=== PATIENT | female | born 1960 | race African-American/Black ===

== ENCOUNTER 2016-09-11 23:56 | Emergency (ER) ==
[2016-09-12 00:45] LABS: URINE CULTURE NEEDED? NO; URINE MICRO REVIEW NEEDED? NO; URINE SOURCE CLEAN CATCH
[2016-09-12 00:49] LABS: BILIRUBIN URINE NEGATIVE (NEGATIVE); BLOOD URINE NEGATIVE (NEGATIVE); COLOR STRAW; GLUCOSE URINE NEGATIVE (NEGATIVE); LEUKOCYTES URINE NEGATIVE (NEGATIVE); NITRITE URINE NEGATIVE (NEGATIVE); PH URINE 6.5; PROTEIN URINE NEGATIVE (NEGATIVE); SP GRAVITY URINE 1.003; TURBIDITY URINE CLEAR (CLEAR); UR EPITHELIAL CELLS <10 /HPF (<10); URINE BACTERIA NEGATIVE /HPF; URINE RBC <10 /HPF (<10); URINE WBC <10 /HPF (<10); UROBILINOGEN URINE NORMAL (NORMAL)
[2016-09-12 01:09] LABS: MANUAL DIFF NEEDED? NO
[2016-09-12 01:15] LABS: BASO% 0.4 % (0.0-0.8); EOS# 0.38 X1000 (0.0-0.7); HEMATOCRIT 37.3 % (37.0-47.0); HEMOGLOBIN 11.8 g/dL (12.0-16.0); IMM GRAN# 0.05 X1000 (0.0-0.04); IMM GRAN% 0.4 % (0.0-0.5); LYMPH% 39.9 % (20.5-51.1); MCH 23.9 PG (27-31); MCHC 31.6 g/dL (33-37); MCV 75.7 FL (81-99); MONO% 4.8 % (1.7-9.3); MPV 9.7 FL (7.4-10.4); NEUT% 51.5 % (42.2-75.2); PLT 423 X1000 (130-400); RBC 4.93 XMIL (4.2-5.4)
[2016-09-12 01:28] LABS: INR 1.03; PROTIME 10.9 Seconds (9.2-11.7); PTT 25.3 Seconds (22.0-36.0)
[2016-09-12 01:40] LABS: ALBUMIN 3.5 g/dL (3.5-5.0); TOTAL BILIRUBIN 0.17 mg/dL (0.20-1.00); TOTAL PROTEIN 7.4 g/dL (6.3-8.3)
[2016-09-12 01:52] LABS: CALCIUM 8.5 mg/dL (8.8-10.2); MAGNESIUM 2.1 mg/dL (1.5-2.7)
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
[2016-09-12] MEDS ORDERED: NORCO-7.5 PO ONE (02:06)
[2016-09-12] MEDS ORDERED: DUONEB (A & A) INH ONE (02:06)
[2016-09-12 02:39] VITALS: BP 140/85
--- NOTE | 2016-09-12 05:50 | EKG Report ---
Test Performed on : 09/12/2016 00:02:19 AM Test Reason : CHEST PAIN X3 DAYS Blood Pressure : / mmHG Vent. Rate : 079 BPM Atrial Rate : 079 BPM P-R Int : 158 ms QRS Dur : 064 ms QT Int : 374 ms P-R-T Axes : 051 026 018 degrees QTc Int : 428 ms Normal sinus rhythm. Possible Left atrial enlargement Borderline ECG When compared with ECG of 28-AUG-2016 11:48, No significant change was found Unconfirmed Result
--- NOTE | 2016-09-12 08:54 | Diag Imaging Result Document ---
PROCEDURE NAME: CHEST-2 VIEWS - 09/12/2016 PA AND LATERAL RADIOGRAPHS OF THE CHEST: COMPARISON: 08/28/2016. FINDINGS: Interstitial thickening on the left is stable suggesting fibrosis. No new consolidations are identified. Cardiac silhouette and central vasculature are unremarkable. IMPRESSION: Stable fibrotic changes on the left. No definite acute pathology.
== END 2016-09-12 02:38 | disposition home or self-care (01) ==
LOC: ED 23:56
DX: J41.0 Simple chronic bronchitis (principal); R05 Cough; R07.9 Chest pain, unspecified; R10.31 Right lower quadrant pain; R10.11 Right upper quadrant pain; M79.601 Pain in right arm; R10.811 Right upper quadrant abdominal tenderness; I10 Essential (primary) hypertension; K21.9 Gastro-esophageal reflux disease without esophagitis; G89.29 Other chronic pain; E11.9 Type 2 diabetes mellitus without complications; I69.354 Hemiplegia and hemiparesis following cerebral infarction affecting left non-dominant side; F41.9 Anxiety disorder, unspecified; F17.210 Nicotine dependence, cigarettes, uncomplicated; Z79.899 Other long term (current) drug therapy; Z83.3 Family history of diabetes mellitus; Z82.49 Family history of ischemic heart disease and other diseases of the circulatory system; Z82.3 Family history of stroke; Z71.6 Tobacco abuse counseling
CPT/HCPCS: 36415; 71020; 80053; 81001; 82550; 83735; 83880; 84484; 85025; 85379; 85610; 85730; 93005; 99284

== ENCOUNTER 2016-11-19 20:40 | Emergency (ER) ==
[2016-11-19 20:47] VITALS: BP 133/102
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
[2016-11-19] MEDS ORDERED: G.I. COCKTAIL PO ONE (21:29)
[2016-11-19] MEDS ORDERED: BENTYL PO ONE (22:08)
--- NOTE | 2016-11-20 06:30 | Diag Imaging Result Document ---
PROCEDURE NAME: FLAT/UPRIGHT ABD/1 VIEW CHEST - 11/19/2016 FLAT AND UPRIGHT, THREE VIEWS: FINDINGS: The lungs are well expanded. The heart is not enlarged. Mild increased interstitial markings appear to be fibrosis. No free air beneath the diaphragm. Bowel loops are not dilated. There is stool in the proximal colon but no significant stool in the mid and distal colon. No organomegaly. No abnormal abdominal calcifications. IMPRESSION No acute abnormality. [facility]
== END 2016-11-19 22:20 | disposition home or self-care (01) ==
LOC: P.ED 20:40
DX: K59.00 Constipation, unspecified (principal); R10.11 Right upper quadrant pain; R10.13 Epigastric pain; R10.811 Right upper quadrant abdominal tenderness; I10 Essential (primary) hypertension; J45.909 Unspecified asthma, uncomplicated; K21.9 Gastro-esophageal reflux disease without esophagitis; G89.29 Other chronic pain; E11.9 Type 2 diabetes mellitus without complications; I69.354 Hemiplegia and hemiparesis following cerebral infarction affecting left non-dominant side; F41.9 Anxiety disorder, unspecified; F17.210 Nicotine dependence, cigarettes, uncomplicated; Z79.899 Other long term (current) drug therapy; Z71.6 Tobacco abuse counseling; Z83.3 Family history of diabetes mellitus; Z82.49 Family history of ischemic heart disease and other diseases of the circulatory system; Z82.3 Family history of stroke
CPT/HCPCS: 74022

== ENCOUNTER 2016-11-20 17:53 | Emergency (ER) ==
[2016-11-20 19:07] LABS: MANUAL DIFF NEEDED? NO
[2016-11-20 19:12] LABS: BASO% 0.3 % (0.0-0.8); EOS# 0.26 X1000 (0.0-0.7); EOS% 2.4 % (0.0-10.0); HEMATOCRIT 44.6 % (37.0-47.0); HEMOGLOBIN 14.1 g/dL (12.0-16.0); IMM GRAN# 0.03 X1000 (0.0-0.04); IMM GRAN% 0.3 % (0.0-0.5); LYMPH# 4.31 X1000 (1.2-3.4); LYMPH% 39.7 % (20.5-51.1); MCH 24.4 PG (27-31); MCHC 31.6 g/dL (33-37); MCV 77.3 FL (81-99); MONO# 0.52 X1000 (0.11-0.59); MONO% 4.8 % (1.7-9.3); MPV 10.4 FL (7.4-10.4); NEUT% 52.5 % (42.2-75.2); PLT 337 X1000 (130-400); RBC 5.77 XMIL (4.2-5.4)
[2016-11-20 19:29] LABS: ALBUMIN 4.1 g/dL (3.5-5.0); CALCIUM 9.2 mg/dL (8.8-10.2); TOTAL BILIRUBIN 0.15 mg/dL (0.20-1.00); TOTAL PROTEIN 8.3 g/dL (6.3-8.3)
[2016-11-20 20:01] LABS: URINE CULTURE NEEDED? NO; URINE MICRO REVIEW NEEDED? NO; URINE SOURCE CLEAN CATCH
[2016-11-20 20:04] LABS: BILIRUBIN URINE NEGATIVE (NEGATIVE); BLOOD URINE NEGATIVE (NEGATIVE); COLOR YELLOW; GLUCOSE URINE NEGATIVE (NEGATIVE); LEUKOCYTES URINE NEGATIVE (NEGATIVE); NITRITE URINE NEGATIVE (NEGATIVE); PROTEIN URINE TRACE mg/dL (NEGATIVE); TURBIDITY URINE CLEAR (CLEAR); UROBILINOGEN URINE NORMAL (NORMAL)
[2016-11-20 20:05] LABS: UR EPITHELIAL CELLS <10 /HPF (<10); URINE BACTERIA 1+ /HPF; URINE RBC <10 /HPF (<10); URINE WBC <10 /HPF (<10)
[2016-11-20] MEDS ORDERED: NS 1,000 ML IV ONE (20:16)
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
[2016-11-20] MEDS ORDERED: DILAUDID IV ONE (20:21)
[2016-11-20] MEDS ORDERED: PHENERGAN IV ONE (20:21)
[2016-11-20] MEDS ORDERED: SODIUM CHLORIDE 0.9% INJ ONE ×2 (20:21→20:23)
[2016-11-20] MEDS ORDERED: PROTONIX IV ONE (20:23)
[2016-11-20] MEDS ORDERED: DECADRON IV ONE (22:53)
--- NOTE | 2016-11-20 23:06 | Diag Imaging Result Document ---
PROCEDURE NAME: CT ABD/PELVIS W/ IV CONT ONLY - 11/20/2016 CT ABDOMEN AND PELVIS WITH INTRAVENOUS CONTRAST. DOSE REDUCTION PROTOCOL. COMPARISON: 04/04/2016. FINDINGS: There is fatty infiltration of the liver. Normal spleen. The gallbladder is contracted. No inflammation about the pancreas. No pancreatic mass or pseudocyst. No pancreatic calcifications. Normal adrenal glands. Normal enhancement of the kidneys. No hydronephrosis. No aortic aneurysm. Mild atherosclerosis. No bowel obstruction. Normal appendix. No abscess. There is a fat-filled anterior abdominal wall hernia just above the umbilicus on the right. No bowel loop within this. The uterus has been removed. The urinary bladder is minimally distended. No free air. IMPRESSION: 1. No CT evidence of pancreatitis. 2. Fatty infiltration of the liver. 3. Anterior abdominal wall hernia containing fat. 4. Hysterectomy. A preliminary report was given at 9:56 p.m..
[2016-11-20 23:27] VITALS: BP 154/83
== END 2016-11-20 23:26 | disposition home or self-care (01) ==
LOC: ED 17:53
DX: R10.11 Right upper quadrant pain (principal); R11.2 Nausea with vomiting, unspecified; K76.0 Fatty (change of) liver, not elsewhere classified; K46.9 Unspecified abdominal hernia without obstruction or gangrene; R10.811 Right upper quadrant abdominal tenderness; I10 Essential (primary) hypertension; J45.909 Unspecified asthma, uncomplicated; K21.9 Gastro-esophageal reflux disease without esophagitis; G89.29 Other chronic pain; E11.9 Type 2 diabetes mellitus without complications; F41.9 Anxiety disorder, unspecified; Z79.899 Other long term (current) drug therapy; Z86.73 Personal history of transient ischemic attack (TIA), and cerebral infarction without residual deficits; Z83.3 Family history of diabetes mellitus; Z82.49 Family history of ischemic heart disease and other diseases of the circulatory system; Z82.3 Family history of stroke
CPT/HCPCS: 74177; 80053; 81001; 82150; 83690; 85025; C9113; J1100; J1170; J2550; J7030; Q9967; S0164

== ENCOUNTER 2016-11-26 05:22 | Emergency (ER) ==
[2016-11-26 05:26] VITALS: BP 163/104
[2016-11-26] MEDS ORDERED: G.I. COCKTAIL PO ONE (05:34)
[2016-11-26] MEDS ORDERED: TORADOL IM ONE (05:34)
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
== END 2016-11-26 06:21 | disposition home or self-care (01) ==
LOC: EDBD → ED 05:22
DX: K82.9 Disease of gallbladder, unspecified (principal); R10.13 Epigastric pain; R10.819 Abdominal tenderness, unspecified site; I10 Essential (primary) hypertension; J45.909 Unspecified asthma, uncomplicated; K21.9 Gastro-esophageal reflux disease without esophagitis; G89.29 Other chronic pain; E11.9 Type 2 diabetes mellitus without complications; I69.354 Hemiplegia and hemiparesis following cerebral infarction affecting left non-dominant side; F41.9 Anxiety disorder, unspecified; Z79.899 Other long term (current) drug therapy; Z83.3 Family history of diabetes mellitus; Z82.49 Family history of ischemic heart disease and other diseases of the circulatory system; Z82.3 Family history of stroke
CPT/HCPCS: J1885

== ENCOUNTER 2017-05-24 12:54 | Inpatient (IN) ==
[2017-05-24 13:40] LABS: MANUAL DIFF NEEDED? NO
[2017-05-24 13:46] LABS: BASO% 0.7 % (0.0-0.8); EOS# 0.27 X1000 (0.0-0.7); EOS% 3.1 % (0.0-10.0); HEMATOCRIT 47.3 % (37.0-47.0); LYMPH# 3.99 X1000 (1.2-3.4); LYMPH% 45.1 % (20.5-51.1); MCH 24.8 PG (27-31); MCHC 31.7 g/dL (33-37); MCV 78.2 FL (81-99); MONO# 0.49 X1000 (0.11-0.59); MONO% 5.5 % (1.7-9.3); MPV 9.6 FL (7.4-10.4); NEUT% 45.6 % (42.2-75.2); PLT 434 X1000 (130-400); RBC 6.05 XMIL (4.2-5.4)
[2017-05-24] MEDS ORDERED: DILAUDID IV ONE (16:26)
[2017-05-24] MEDS ORDERED: REGLAN IV ONE (16:26)
[2017-05-24] MEDS ORDERED: NS 1,000 ML IV ONE (16:27)
[2017-05-24] MEDS ORDERED: PROTONIX IV ONE (16:39)
[2017-05-24] MEDS ORDERED: G.I. COCKTAIL PO ONE (16:39)
[2017-05-24 17:09] LABS: ALBUMIN 4.5 g/dL (3.5-5.0); CALCIUM 9.9 mg/dL (8.8-10.2); TOTAL BILIRUBIN 0.16 mg/dL (0.20-1.00); TOTAL PROTEIN 9.2 g/dL (6.3-8.3)
[2017-05-24] MEDS ORDERED: DILAUDID ONE (17:27)
[2017-05-24 18:03] LABS: INR 1.03; PROTIME 10.8 Seconds (9.2-11.7); PTT 25.9 Seconds (22.0-36.0)
[2017-05-24] MEDS ORDERED: SODIUM CHLORIDE 0.9% INJ ONE (20:28)
[2017-05-24] MEDS ORDERED: PHENERGAN IV ONE (20:28)
[2017-05-24] MEDS ORDERED: DEMEROL IV ONE (20:28)
[2017-05-24] MEDS ORDERED: NS 500 ML IV ONE (20:30)
[2017-05-24 22:44] LABS: URINE MICRO REVIEW NEEDED? NO; URINE SOURCE CLEAN CATCH
[2017-05-24 22:47] LABS: BILIRUBIN URINE NEGATIVE (NEGATIVE); BLOOD URINE NEGATIVE (NEGATIVE); COLOR YELLOW; GLUCOSE URINE NEGATIVE (NEGATIVE); LEUKOCYTES URINE TRACE (NEGATIVE); NITRITE URINE NEGATIVE (NEGATIVE); PROTEIN URINE NEGATIVE (NEGATIVE); SP GRAVITY URINE 1.015; TURBIDITY URINE CLEAR (CLEAR); UROBILINOGEN URINE NORMAL (NORMAL)
[2017-05-24 22:48] LABS: UR EPITHELIAL CELLS <10 /HPF (<10); URINE BACTERIA NEGATIVE /HPF; URINE CULTURE NEEDED? YES; URINE RBC <10 /HPF (<10); URINE WBC <10 /HPF (<10)
[2017-05-24] MEDS ORDERED: DULCOLAX PR ONE (23:24)
[2017-05-24] MEDS ORDERED: NS 1,000 ML IV SCH (23:24)
[2017-05-24] MEDS ORDERED: ZOFRAN IV PRN (23:24)
[2017-05-24] MEDS ORDERED: DULCOLAX PR PRN (23:24)
[2017-05-25 00:03] LABS: HEMOGLOBIN A1C 6.2 % (4.8-6.0)
[2017-05-25] MEDS: XANAX PO SCH ×3 (00:08→20:21)
[2017-05-25] MEDS: REGLAN IV SCH ×4 (00:08→18:14)
[2017-05-25] MEDS: CARAFATE LIQUID PO SCH ×4 (00:08→18:14)
[2017-05-25] MEDS ORDERED: MORPHINE IV ONE (00:12)
[2017-05-25] MEDS: LOVENOX SUBQ SCH (06:09)
[2017-05-25 06:38] LABS: MANUAL DIFF NEEDED? NO
[2017-05-25 06:51] LABS: BASO% 0.3 % (0.0-0.8); EOS% 2.7 % (0.0-10.0); HEMATOCRIT 39.4 % (37.0-47.0); HEMOGLOBIN 12.4 g/dL (12.0-16.0); LYMPH# 3.94 X1000 (1.2-3.4); LYMPH% 52.5 % (20.5-51.1); MCH 25.1 PG (27-31); MCHC 31.5 g/dL (33-37); MCV 79.6 FL (81-99); MONO# 0.54 X1000 (0.11-0.59); MONO% 7.2 % (1.7-9.3); MPV 10.1 FL (7.4-10.4); NEUT% 37.3 % (42.2-75.2); PLT 376 X1000 (130-400); RBC 4.95 XMIL (4.2-5.4)
[2017-05-25 07:15] LABS: CALCIUM 8.8 mg/dL (8.8-10.2)
[2017-05-25] MEDS ORDERED: TORADOL IV PRN (09:35)
[2017-05-25] MEDS: COLACE PO SCH (10:21)
[2017-05-25] MEDS: MIRALAX PO SCH (10:22)
[2017-05-25] MEDS: CATAPRES PO SCH (10:22)
[2017-05-25] MEDS: PROTONIX IV SCH (10:22)
[2017-05-25] MEDS: SODIUM CHLORIDE 0.9% INJ SCH (10:22)
[2017-05-25] MEDS: NUBAIN IV PRN ×3 (11:49→23:32)
[2017-05-25] MEDS: TYLENOL PO PRN ×2 (13:11→20:21)
[2017-05-25] MEDS: NS 1,000 ML IV SCH (18:14)
[2017-05-25] MEDS: ATIVAN IV PRN (20:21)
[2017-05-26] MEDS: NS 1,000 ML IV SCH ×2 (00:54→18:00)
[2017-05-26] MEDS: CARAFATE LIQUID PO SCH ×4 (00:54→18:00)
[2017-05-26] MEDS: REGLAN IV SCH ×4 (00:55→18:00)
[2017-05-26] MEDS: ATIVAN IV PRN ×4 (03:00→22:04)
[2017-05-26] MEDS: NUBAIN IV PRN ×2 (05:07→11:25)
[2017-05-26] MEDS: LOVENOX SUBQ SCH (05:08)
[2017-05-26 06:34] LABS: MANUAL DIFF NEEDED? NO
[2017-05-26 06:58] LABS: BASO% 0.4 % (0.0-0.8); EOS# 0.43 X1000 (0.0-0.7); EOS% 4.8 % (0.0-10.0); HEMATOCRIT 39.9 % (37.0-47.0); HEMOGLOBIN 12.3 g/dL (12.0-16.0); IMM GRAN# 0.02 X1000 (0.0-0.04); IMM GRAN% 0.2 % (0.0-0.5); LYMPH% 57.1 % (20.5-51.1); MCH 24.7 PG (27-31); MCHC 30.8 g/dL (33-37); MCV 80.1 FL (81-99); MONO# 0.55 X1000 (0.11-0.59); MONO% 6.2 % (1.7-9.3); MPV 10.3 FL (7.4-10.4); NEUT% 31.3 % (42.2-75.2); PLT 394 X1000 (130-400); RBC 4.98 XMIL (4.2-5.4)
[2017-05-26 07:07] LABS: CALCIUM 8.9 mg/dL (8.8-10.2); POTASSIUM 4.5 mmol/L (3.5-5.1)
[2017-05-26] MEDS ORDERED: MIRALAX PO SCH (09:00)
[2017-05-26] MEDS: COLACE PO SCH (09:16)
[2017-05-26] MEDS: CATAPRES PO SCH (09:16)
[2017-05-26] MEDS: SODIUM CHLORIDE 0.9% INJ SCH (09:17)
[2017-05-26] MEDS: XANAX PO SCH ×2 (09:17→22:03)
[2017-05-26] MEDS: PROTONIX IV SCH (09:17)
[2017-05-26] MEDS: MIRALAX PO SCH (09:18)
[2017-05-26] MEDS ORDERED: HALDOL IV PRN (11:30)
[2017-05-26] MEDS: DEMEROL IV PRN ×3 (12:04→23:36)
[2017-05-27] MEDS: CARAFATE LIQUID PO SCH ×2 (00:23→05:07)
[2017-05-27] MEDS: REGLAN IV SCH ×2 (02:16→06:18)
[2017-05-27] MEDS: ATIVAN IV PRN (04:11)
[2017-05-27] MEDS: DEMEROL IV PRN (05:04)
[2017-05-27] MEDS: NS 1,000 ML IV SCH (05:04)
[2017-05-27] MEDS: LOVENOX SUBQ SCH (06:18)
[2017-05-27 07:30] VITALS: BP 181/98
[2017-05-27] MEDS: XANAX PO SCH (09:40)
[2017-05-27] MEDS: CATAPRES PO SCH (09:40)
[2017-05-27] MEDS: COLACE PO SCH (09:40)
[2017-05-27] MEDS: MIRALAX PO SCH (09:40)
[2017-05-27] MEDS: PROTONIX IV SCH (09:40)
== END 2017-05-27 10:14 | disposition home or self-care (01) ==
LOC: SUPCPDRO → ED 12:54 → 4N 23:10 → SUATTDRO 23:10
PROVIDERS: ADMIT Internal Medicine; ATTEND Internal Medicine

== ENCOUNTER 2019-04-03 12:52 | Inpatient (IN) ==
[2019-04-03] MEDS ORDERED: ZOFRAN IV ONE (13:57)
[2019-04-03] MEDS ORDERED: MORPHINE IV ONE ×2 (13:57→16:30)
[2019-04-03 14:22] LABS: BASO# 0.02 X1000 (0.0-0.2); BASO% 0.2 % (0.0-0.8); EOS# 0.03 X1000 (0.0-0.7); EOS% 0.3 % (0.0-10.0); HEMATOCRIT 44.2 % (37.0-47.0); HEMOGLOBIN 14.1 g/dL (12.0-16.0); IMM GRAN# 0.03 X1000 (0.0-0.04); IMM GRAN% 0.3 % (0.0-0.5); LYMPH# 2.05 X1000 (1.2-3.4); LYMPH% 21.7 % (20.5-51.1); MCH 24.3 PG (27-31); MCHC 31.9 g/dL (33-37); MCV 76.1 FL (81-99); MONO# 0.56 X1000 (0.11-0.59); MONO% 5.9 % (1.7-9.3); MPV 11.1 FL (7.4-10.4); NEUT# 6.75 X1000 (1.4-6.5); NEUT% 71.6 % (42.2-75.2); PLT 299 X1000 (130-400); RBC 5.81 XMIL (4.2-5.4); RDW 17.3 % (11.5-14.5); WBC 9.44 X1000 (4.8-10.8)
--- NOTE | 2019-04-03 14:22 | EKG Report ---
Test Performed on : 04/03/2019 12:58:12 PM Test Reason : CP Blood Pressure : / mmHG Vent. Rate : 100 BPM Atrial Rate : 100 BPM P-R Int : 140 ms QRS Dur : 060 ms QT Int : 344 ms P-R-T Axes : 056 038 059 degrees QTc Int : 443 ms Normal sinus rhythm. Biatrial enlargement Abnormal ECG When compared with ECG of 18-OCT-2018 09:43, No significant change was found Unconfirmed Result
[2019-04-03 14:37] LABS: ALB/GLOB RATIO 0.9; ALBUMIN 4.1 g/dL (3.5-5.0); CALCIUM 9.7 mg/dL (8.8-10.2); CREATININE 2.5 mg/dL (0.5-0.9); POTASSIUM 3.8 mmol/L (3.5-5.1); TOTAL BILIRUBIN 0.3 mg/dL (0.20-1.00); TOTAL PROTEIN 8.6 g/dL (6.3-8.3)
--- NOTE | 2019-04-03 14:51 | Diag Imaging Result Doc PS360 ---
EXAM: US GB < RUQ (LIMITED) 04/03/2019 HISTORY: ruq pain TECHNIQUE: Right upper quadrant ultrasound COMMENT: The pancreatic head appears to be within normal limits the rest is obscured. The liver is not well demonstrated but there are no definite abnormalities. There is no evidence of biliary dilatation the common bile duct measuring less than 4 mm. There is antegrade flow in the portal vein. The gallbladder is clear and nontender. The right kidney is without evidence of hydronephrosis or mass. The visualized portions of the aorta and inferior vena cava are within normal limits. IMPRESSION: No evidence of acute disease. Electronically signed by Roosevelt Dee 04/03/2019 2:48 PM
[2019-04-03 15:09] LABS: URINE SOURCE CLEAN CATCH
[2019-04-03 15:13] LABS: BILIRUBIN URINE NEGATIVE (NEGATIVE); BLOOD URINE TRACE (NEGATIVE); COLOR YELLOW; GLUCOSE URINE NEGATIVE (NEGATIVE); KETONE URINE TRACE mg/dL (NEGATIVE); LEUKOCYTES URINE NEGATIVE (NEGATIVE); NITRITE URINE NEGATIVE (NEGATIVE); PH URINE 5.5; PROTEIN URINE 100 mg/dL (NEGATIVE); SP GRAVITY URINE 1.026; TURBIDITY URINE HAZY (CLEAR); UROBILINOGEN URINE 2 mg/dL (NORMAL)
[2019-04-03 15:15] LABS: UR EPITHELIAL CELLS >10 /HPF (<10); URINE BACTERIA 2+ /HPF; URINE WBC 20-40 /HPF (<10)
[2019-04-03] MEDS ORDERED: NS 1,000 ML IV ONE ×2 (15:17→21:33)
--- NOTE | 2019-04-03 16:19 | Diag Imaging Result Doc PS360 ---
EXAM: CT ABD/PELVIS W/ORAL CONT ONLY 04/03/2019 HISTORY: ruq pain/tender TECHNIQUE: This exam was performed using automated exposure control, adjustment of mA or kV according to patient size, and/or use of iterative reconstruction technique. COMMENT: There are fibrotic opacities in the right middle lobe and lingula. There are emphysematous changes in both lower lobes. These findings were also present on 03/27/2018. There are granulomata in the spleen. The gallbladder is clear. There are a few scattered hepatic granulomata. There is fatty change near the falciform ligament groove. There is some dilatation of the renal pelvis and calyces on the right. This was not the case at the time the previous study. There is no evidence of nephrolithiasis. There is no evidence of ureterolithiasis and the urinary bladder is unremarkable. The appendix is normal in appearance. There is a small ventral hernia containing fat to the right of the umbilicus. There is no evidence of bowel obstruction. Pelvis: There has been hysterectomy. No free fluid is present. There are degenerative changes in the sacroiliac joints. There is no evidence of acute bony abnormality. IMPRESSION: Dilatation of the right renal collecting system of uncertain etiology. Otherwise, no evidence of acute disease. Electronically signed by Roosevelt Dee 04/03/2019 4:17 PM
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
[2019-04-03] MEDS ORDERED: DILAUDID IV ONE (17:33)
[2019-04-03] MEDS ORDERED: DILAUDID IV PRN (18:44)
--- NOTE | 2019-04-03 21:10 | HISTORY AND PHYSICAL ---
CHIEF COMPLAINT: Nausea, vomiting, chest pain and abdominal pain for 4 days. HISTORY OF PRESENT ILLNESS: The patient says she started throwing up and having substernal chest pain that radiated down her left arm and caused her to have diaphoresis and shortness of breath. Her chest pain was dull and substernal and a little bit to the right side of the sternum, but she had pain down her left arm. She initially told the emergency room doctor that she had more right upper quadrant pain that will radiated to the epigastrium, but this is a little unusual that she has shortness of breath with this as well. She says however though she does have shortness of breath at other times as well. PAST MEDICAL HISTORY: She states that she has had some hypertension and some diabetes, but she does not take any medicine for the diabetes. She has a history of peripheral neuropathy. She does have some low back pain at times. SOCIAL HISTORY: She soes not alcohol or tobacco. She placido have a history of chronic obstructive pulmonary disease and GERD. It should be noted the patient has been a tobacco user in the past, and has a history of COPD, history of peptic ulcer disease, history of gastroparesis. She has not had a history of vascular disease. The last hemoglobin A1c that we have on her was on 05/24/2017, it was 6.2%. Her creatinine was elevated at 2.5 at that time. Creatinine is 2.5 here as well. She has no children, REVIEW OF SYSTEMS: Neurological: Says she has a headache almost every day, this certainly sounds like tension headaches from her description. Pulmonary: Says she has a cough a good bit of the time, but does have a history of COPD. Cardiovascular: Please see present illness. Has had some chest pain, it is unclear whether this is GI or cardiac, but we will rule out cardiac. Gastrointestinal: Has had nausea and vomiting several times over the last several days. Blood sugar was 146. Denies any diarrhea, constipation, melena, hematochezia, hematemesis. Endocrine: Does have diabetes controlled with diet. Genitourinary: Denies any symptoms with urinary tract despite findings on studies. Psychiatric: Has had anxiety and depression in the past. Please see medication list. PHYSICAL EXAMINATION: VITAL SIGNS: Show a blood pressure of 175/104, oxygen saturation is 96%, pulse 90, temperature 97.6 degrees Fahrenheit. HEENT: She is normocephalic. EOMS intact. PERRLA. Throat clear. LUNGS: Clear to auscultation and percussion without rhonchi, rales or wheezes. HEART: Regular rate and rhythm without murmurs, gallops or friction rubs. ABDOMEN: Soft. She has a little right upper quadrant tenderness. She has what appears to be an abdominal hernia and then seen on her CT scan as well. EKG shows normal sinus rhythm with biatrial enlargement. Otherwise normal. Rate of 100 beats per minute. PELVIC/RECTAL: Examinations deferred. NEUROLOGICAL: Cranial nerves II-XII intact grossly. Sensory and motor intact. Reflexes 1+ all. She does have decreased sensation especially on the bottom of her right foot with monofilament testing. LABORATORY: Shows a white count down to 9440, hemoglobin 14.1, creatinine 2.5, which shows her chronic kidney disease. Blood sugar was 146. We will get a hemoglobin A1c. Serum lipase was just slightly up 77, one liver enzyme was slightly up at 38. Urinalysis showed 20 to 40 WBCs and 10 to 20 RBCs. Ultrasound of her abdomen was essentially normal. CT scan of her collecting system shows some fibrotic opacities in the right middle lobe like that she has had before consistent with emphysema. She had fatty change to the liver. There is some dilatation of the renal pelvis and calices on the right, but no signs of stone. There is no evidence of ureterolithiasis and the bladder was unremarkable. Whether she has had a stone in the past it is unclear. She has never known about having it. She is not having symptoms of a urinary tract infection, though she does have pyuria and hematuria. ASSESSMENT: 1. Nausea and vomiting with chest pain. Plan to rule out myocardial infarction then if that is negative to do gastroenterology workup. 2. Urinary tract infection. 3. Dilated right collecting system up in the kidney. 4. Anxiety. 5. Chronic kidney disease. 6. History of diet controlled diabetes. 7. Hypertension. PLAN: We will treat nausea. We will get Cardiology to see her, if this looks more GI weill get astroenterology to see her as well. Control her pain and control her nausea. Rule out NV. Dictated by Ten Boyd Jr, MD for PPedro Luis Pitts MD cc: MD Vinay Peralta Jr, MD
[2019-04-03] MEDS ORDERED: TYLENOL PO PRN (21:33)
[2019-04-03] MEDS ORDERED: DILAUDID IM PRN (21:33)
[2019-04-03 22:40] LABS: UR AMPHETAMINES QUAL NONE DETECTED (NONE DETECT); UR BARBITUATES QUAL NONE DETECTED (NONE DETECT); UR BENZODIAZEPIN QUAL NONE DETECTED (NONE DETECT); UR CANNABINOIDS QUAL NONE DETECTED (NONE DETECT); UR COCAINE QUAL NONE DETECTED (NONE DETECT); UR METHADONE QUAL NONE DETECTED (NONE DETECT); UR OPIATES QUAL PRESUMPTIVE POSITIVE (NONE DETECT); UR OXYCODONE QUAL NONE DETECTED (NONE DETECT); UR PCP QUAL NONE DETECTED (NONE DETECT)
[2019-04-03] MEDS: NITROGLYCERIN TOP SCH (23:05)
[2019-04-04 00:16] LABS: CK INDEX 1.7 (0.0-2.5); CK-MB 3.19 ng/mL (0.0-5.0)
[2019-04-04] MEDS: DILAUDID IV PRN ×7 (00:58→23:23)
[2019-04-04] MEDS: ZOFRAN IV PRN ×5 (02:23→21:38)
[2019-04-04] MEDS: NITROGLYCERIN TOP SCH ×4 (04:05→21:38)
[2019-04-04 05:35] LABS: BASO# 0.04 X1000 (0.0-0.2); BASO% 0.5 % (0.0-0.8); EOS# 0.18 X1000 (0.0-0.7); EOS% 2.2 % (0.0-10.0); HEMATOCRIT 38.2 % (37.0-47.0); HEMOGLOBIN 12.4 g/dL (12.0-16.0); LYMPH# 3.59 X1000 (1.2-3.4); LYMPH% 44.3 % (20.5-51.1); MCH 24.8 PG (27-31); MCHC 32.5 g/dL (33-37); MCV 76.6 FL (81-99); MONO# 0.68 X1000 (0.11-0.59); MONO% 8.4 % (1.7-9.3); MPV 11.3 FL (7.4-10.4); NEUT# 3.61 X1000 (1.4-6.5); NEUT% 44.6 % (42.2-75.2); PLT 254 X1000 (130-400); RBC 4.99 XMIL (4.2-5.4)
[2019-04-04 05:59] LABS: CALCIUM 8.8 mg/dL (8.8-10.2); CREATININE 1.6 mg/dL (0.5-0.9); POTASSIUM 3.1 mmol/L (3.5-5.1)
[2019-04-04] MEDS: PROTONIX PO SCH (07:51)
[2019-04-04] MEDS: POTASSIUM CHLORIDE 20 MEQ/SWI 20 MEQ/100 ML IVPB IV SCH ×4 (08:04→17:54)
[2019-04-04] MEDS ORDERED: CATAPRES PO SCH (09:00)
[2019-04-04] MEDS: MAXZIDE-25 PO SCH (09:19)
[2019-04-04] MEDS: XANAX PO SCH ×2 (09:20→20:40)
[2019-04-04] MEDS ORDERED: CATAPRES-TTS-3 TD SCH (12:30)
--- NOTE | 2019-04-04 13:13 | PROGRESS NOTE ---
DATE: 04/04/2019 SUBJECTIVE: The patient still does not feel good. Blood pressure got as high is 220, but it has come down some. I am going to change her over to a Catapres patch and stop her oral clonidine. Cardiac enzymes so far are negative. She did have chest pain with this as well as nausea and vomiting. She has shortness of breath but has a history of chronic obstructive pulmonary disease and continues to smoke. PHYSICAL EXAMINATION: OBJECTIVE: Vital signs: Blood pressure was 172/102 last recorded, but was down to 125. Systolic pulse 84, respirations 18. She is afebrile. HEENT: She is normocephalic. EOMS intact. PERRLA. Throat clear. Lungs: Sound clear to auscultation and percussion without rhonchi, rales, or wheezes. Heart: Regular rate and rhythm without murmurs, gallops, or friction rubs. Abdomen: Soft. Active bowel sounds with a little tenderness in the epigastrium and she does have a hernia in the abdomen. This was seen on CT scan. There was no signs of obstruction. Neurological exam: Intact grossly. Patient is anxious and she was wanting her Xanax, so we restarted that. ASSESSMENT: 1. Chest pain. 2. Nausea and vomiting. PLAN: We will rule out myocardial infarction. Have cardiology evaluate. If cardiac workup is negative, we will consider gastrointestinal workup. We will control blood pressure. cc: MD Vinay Peralta Jr, MD
--- NOTE | 2019-04-04 13:14 | CARDIOLOGY CONSULTATION ---
DATE: 04/04/2019 CHIEF COMPLAINT: Nausea, vomiting, chest pain. Ms. Dale is a 59-year-old -[place] lady who since Saturday has been having nausea, vomiting associated with epigastric and retrosternal chest discomfort. She had multiple episodes of vomiting as well. There was no associated diarrhea. There was no fevers or chills. She does not have any previous cardiac history. As far as chest pains are concerned, it is mainly located in the abdominal region and then she has also had retrosternal chest discomfort. Electrocardiogram was unremarkable. Cardiac enzymes were negative. The patient was subsequently admitted. Prior to this, she has not had exertional component of chest pain. There is no orthopnea or paroxysmal nocturnal dyspnea. There is no history of palpitations. REVIEW OF SYSTEM: A 14-point review of systems was done. GI System: Was above. Central Nervous System: No focal weakness to suggest a CVA or TIA. Genitourinary System: There is no dysuria or hematuria. Respiratory System: There is no history of cough, expectoration, hemoptysis. There is no history of fevers or chills. PAST MEDICAL HISTORY: 1. Hypertension. 2. Diabetes. 3. Peripheral neuropathy. She does not smoke. Does not drink. 4. COPD. 5. History of peptic ulcer disease. 6. Renal insufficiency. HOME MEDICATIONS: 1. Xanax 0.25 mg p.o. b.i.d. 2. Clonidine 0.2 mg daily. 3. Triamterene hydrochlorothiazide. 4. Protonix 40 in the hospital. 5. She has also received Dilaudid p.r.n. basis. PHYSICAL EXAMINATION: Vital Signs: Blood pressure was 170/102. Neck: Jugular venous pressure was normal. Cardiac: First and second heart sounds were heard. There was no S3 gallop. Respiratory System: Normal air entry. There are no crepitations. There was a few scattered wheeze. Abdomen: Soft. Tenderness in the epigastrium and right hypochondrium. Bowel sounds heard. Central nervous System: Alert and was moving all 4 extremities. Extremities: Revealed no pedal edema. HEENT: Atraumatic, normocephalic. Pupils were equal and reacting to light. LABORATORY EXAMINATION: WBC 8.1, hemoglobin 12.4, hematocrit 38, platelet count of 254,000. Sodium 133, potassium 3.1, BUN 27, creatinine 1.6. Cardiac enzymes, [address] scan of her abdominal pelvis revealed dilatation of the right renal collecting system. Abdominal ultrasound, the gallbladder was clear, was nontender. ASSESSMENT AND PLAN: 1. Ms. Irma Dale is a 59-year-old -[place] lady with history of hypertension, borderline diabetes, renal insufficiency, is admitted with nausea, vomiting, epigastric and retrosternal chest discomfort. I suspect her chest pain is secondary to her nausea and vomiting. No previous cardiac history. She has tenderness in the epigastrium on palpation. I suspect this is related to GERD or gastrointestinal issues. From a cardiac standpoint, we will get an echocardiogram to assess cardiac and valvular function. Electrocardiogram did not reveal any evidence of ischemia. Cardiac enzymes were negative. Would recommend GI workup. 2. Hypertension. Blood pressures were elevated. She is currently on clonidine TTS 3 patch, and nitroglycerin. In addition to hydrochlorothiazide would recommend adding calcium channel blockers if her blood pressure is not under control. Thank you for the consult. We will follow hospital course. cc: MD Vinay Cohen MD
[2019-04-04] MEDS ORDERED: NS 250 ML IV ONE (16:15)
--- NOTE | 2019-04-04 16:51 | ECHO REPORT ---
ORDER DATE: 04/04/2019 ECHOCARDIOGRAPHIC MEASUREMENTS AND FINDINGS: Interventricular septum 1.0. Left ventricular posterior wall 1.0. Diastolic diameter 3.7. Left atrium. 2.9. Aorta 2.8. Aortic valve leaflets are trileaflet. Pulmonic valve was normal. Tricuspid valve was normal. There is trace pulmonary regurgitation. Mitral valve was normal. There is mild mitral regurgitation. Peak velocity across the aortic valve less than 2 m/sec. There is no aortic stenosis or regurgitation. Mild tricuspid regurgitation. Peak velocity across the tricuspid valve was 2.6 m/sec. Pulmonary artery systolic pressure of 27 mmHg. Normal left ventricular cavity size. Estimated ejection fraction of 60% to 65%. There is no pericardial effusion or obvious intracardiac mass or thrombus seen. cc: MD Vinay Cohen MD
[2019-04-05] MEDS: NITROGLYCERIN TOP SCH ×4 (04:46→22:21)
[2019-04-05] MEDS: PROTONIX PO SCH (06:48)
[2019-04-05] MEDS: DILAUDID IV PRN ×5 (07:14→19:26)
[2019-04-05 07:19] LABS: BASO# 0.03 X1000 (0.0-0.2); BASO% 0.4 % (0.0-0.8); EOS# 0.17 X1000 (0.0-0.7); EOS% 2.3 % (0.0-10.0); HEMATOCRIT 43.7 % (37.0-47.0); HEMOGLOBIN 13.7 g/dL (12.0-16.0); LYMPH# 3.17 X1000 (1.2-3.4); LYMPH% 42.7 % (20.5-51.1); MCH 24.6 PG (27-31); MCHC 31.4 g/dL (33-37); MCV 78.6 FL (81-99); MONO# 0.41 X1000 (0.11-0.59); MONO% 5.5 % (1.7-9.3); NEUT# 3.65 X1000 (1.4-6.5); NEUT% 49.1 % (42.2-75.2); PLT 328 X1000 (130-400); RBC 5.56 XMIL (4.2-5.4); RDW 17.7 % (11.5-14.5); WBC 7.43 X1000 (4.8-10.8)
[2019-04-05 07:54] LABS: CALCIUM 9.8 mg/dL (8.8-10.2); CREATININE 1.4 mg/dL (0.5-0.9); POTASSIUM 3.8 mmol/L (3.5-5.1)
[2019-04-05] MEDS: MAXZIDE-25 PO SCH (09:35)
[2019-04-05] MEDS: XANAX PO SCH ×2 (09:35→20:27)
[2019-04-05] MEDS: ZOFRAN IV PRN ×4 (09:39→20:27)
--- NOTE | 2019-04-05 12:19 | PROGRESS NOTE ---
DATE: 04/05/2019 SUBJECTIVE: Patient's says she has been having more abdominal pain and now tells me she has actually been hurting off and on for about 2 weeks. She has had some chest pain with this, too, so we had Cardiology see her, and they feel like this is probably not cardiac but GI in nature. OBJECTIVE: Blood pressure is 150/77, respirations 18, pulse 85, temperature 98.1 degrees Fahrenheit, oxygen saturation on room air is 92%.HEENT: She is normocephalic. EOMS intact. PERRLA. Throat clear. Lungs are fairly clear to auscultation this morning. Heart has regular rate and rhythm without murmurs, gallops, or friction rubs. Abdomen is soft with some mild tenderness in the epigastric area. Neurological exam intact grossly. DIAGNOSTIC STUDIES: White count 7430, hemoglobin 13.7. Potassium up to 3.8 after giving her supplemental potassium and it did have to be stopped sooner than we were going to because she was having burning with IV potassium but it did get her back to normal. She did have some pyuria initially. Apparently a culture was not done, and she has not been treated for this. We will go ahead and get a culture. ASSESSMENT: 1. Chest pain, possibly from esophagus. 2. Abdominal pain. 3. Pyuria. PLAN: We will get Gastroenterology to see the patient. Appreciate Cardiology seeing her. cc: MD Vinay Peralta Jr, MD
--- NOTE | 2019-04-05 18:35 | GASTROENTEROLOGY CONSULTATION ---
DATE: 04/05/2019 Reason for consultation: N/V, periumbilical pain HISTORY OF PRESENT ILLNESS: Ms. Dale is a 59 year old woman with history of HTN, GERD, NIDDM2, colonic polyps, anxiety, tobacco abuse, COPD, h/o PUD, peripheral neuropathy and gastroparesis who presents with 1 week of intractable nausea and vomiting. She complains of associated non-radiating periumbilical abdominal pain described as 9/10 and constant. She reports associated diaphoresis and chest pain. +decreased appetite and weight loss during this period. Last BM unknown. No rectal bleeding, melena, or symptoms. No sick contacts, recent travel or antibiotics, or changes in diet. No NSAIDs or blood thinners. Last colonoscopy was done by Dr. Crowe in 2014. EGD in [address] Chiu. ROS: as per HPI, otherwise 12 point ROS negative PMH:as per HPI PSH: hysterectomy, hernia repair FH: brother with CRC diagnosed at 57 SH: 1ppd smoker; smoker since 20yo, no E/D MED: protonix, xanax, clonidine, triamterene/HCTZ ALL: NDKA PE: VS: 97.6 BP 175/104 HR 90 RR 16 O2 96% GEN: awake, alert, NAD HEENT: anicteric, MMM, EOMI NECK: supple, no jvd PULM: CTAB, no wheezing CV: RRR, no murg ABD: soft, mild TTP mid abdomen, no rebound or guarding, no Faulkner's EXT: no cce NEURO: nonfocal LABS: Cr 1.4<--2.5 WBC 7.4 Hgb 13.7 plts 328 LFTs 04/03 Tbili 0.3 AST 38 ALT 23 ALP 136 lipase 77 UA dirty, repeat normal a1c at goal troponin neg x2 ECHOCARDIOGRAPHIC MEASUREMENTS AND FINDINGS: Interventricular septum 1.0. Left ventricular posterior wall 1.0. Diastolic diameter 3.7. Left atrium. 2.9. Aorta 2.8. Aortic valve leaflets are trileaflet. Pulmonic valve was normal. Tricuspid valve was normal. There is trace pulmonary regurgitation. Mitral valve was normal. There is mild mitral regurgitation. Peak velocity across the aortic valve less than 2 m/sec. There is no aortic stenosis or regurgitation. Mild tricuspid regurgitation. Peak velocity across the tricuspid valve was 2.6 m/sec. Pulmonary artery systolic pressure of 27 mmHg. Normal left ventricular cavity size. Estimated ejection fraction of 60% to 65%. There is no pericardial effusion or obvious intracardiac mass or thrombus seen. EXAM: CT ABD/PELVIS W/ORAL CONT ONLY 04/03/2019 HISTORY: ruq pain/tender COMMENT: There are fibrotic opacities in the right middle lobe and lingula. There are emphysematous changes in both lower lobes. These findings were also present on 03/27/2018. There are granulomata in the spleen. The gallbladder is clear. There are a few scattered hepatic granulomata. There is fatty change near the falciform ligament groove. There is some dilatation of the renal pelvis and calyces on the right. This was not the case at the time the previous study. There is no evidence of nephrolithiasis. There is no evidence of ureterolithiasis and the urinary bladder is unremarkable. The appendix is normal in appearance. There is a small ventral hernia containing fat to the right of the umbilicus. There is no evidence of bowel obstruction. Pelvis: There has been hysterectomy. No free fluid is present. There are degenerative changes in the sacroiliac joints. There is no evidence of acute bony abnormality. IMPRESSION: Dilatation of the right renal collecting system of uncertain etiology. Otherwise, no evidence of acute disease. EXAM: US GB < RUQ (LIMITED) 04/03/2019 HISTORY: ruq pain TECHNIQUE: Right upper quadrant ultrasound COMMENT: The pancreatic head appears to be within normal limits the rest is obscured. The liver is not well demonstrated but there are no definite abnormalities. There is no evidence of biliary dilatation the common bile duct measuring less than 4 mm. There is antegrade flow in the portal vein. The gallbladder is clear and nontender. The right kidney is without evidence of hydronephrosis or mass. The visualized portions of the aorta and inferior vena cava are within normal limits. IMPRESSION: No evidence of acute disease. A/P Ms. Dale is a 59 year old woman with history of HTN, GERD, NIDDM2, colonic polyps, tobacco abuse, COPD, h/o PUD, peripheral neuropathy and gastroparesis who presents with 1 week of intractable nausea and vomiting. Found to have JOHN. Elevated lipase not consistent with pancreatitis. Minimally elevated LFTs. Repeat UA negative. She has history of gastroparesis, but this is inconsistent with gastroparesis. Ruled out for ACS. Nuclear stress test ordered for tomorrow. On NTG and clonidine patch for hypertensive urgency # N/V: continue antiemetics prn, clear liquid diet, PPI # Hypertensive urgency/chest pain: improved; myocardial perfusion scan tomorrow; cards following # Abdominal pain: minimally elevated LFTs and lipase; inconsistent with pancreatitis: will consider EGD # NIDDM2: glycemic control Will follow with you. cc: Vinay Pitts MD [facility]
[2019-04-05 19:22] LABS: URINE SOURCE CLEAN CATCH
[2019-04-05 19:28] LABS: BILIRUBIN URINE NEGATIVE (NEGATIVE); BLOOD URINE NEGATIVE (NEGATIVE); COLOR STRAW; GLUCOSE URINE NEGATIVE (NEGATIVE); KETONE URINE NEGATIVE (NEGATIVE); LEUKOCYTES URINE NEGATIVE (NEGATIVE); NITRITE URINE NEGATIVE (NEGATIVE); PH URINE 6.5; PROTEIN URINE NEGATIVE (NEGATIVE); SP GRAVITY URINE 1.006; TURBIDITY URINE CLEAR (CLEAR); UROBILINOGEN URINE NORMAL (NORMAL)
[2019-04-05 19:29] LABS: UR EPITHELIAL CELLS <10 /HPF (<10); URINE BACTERIA NEGATIVE /HPF; URINE RBC <10 /HPF (<10); URINE WBC <10 /HPF (<10)
[2019-04-06] MEDS: DILAUDID IV PRN ×7 (00:24→23:36)
[2019-04-06] MEDS: ZOFRAN IV PRN ×6 (00:28→23:36)
[2019-04-06] MEDS: NITROGLYCERIN TOP SCH ×4 (04:16→23:36)
[2019-04-06] MEDS: PROTONIX PO SCH (06:32)
[2019-04-06 07:37] LABS: BASO# 0.03 X1000 (0.0-0.2); BASO% 0.4 % (0.0-0.8); EOS# 0.24 X1000 (0.0-0.7); EOS% 3.3 % (0.0-10.0); HEMATOCRIT 39.6 % (37.0-47.0); HEMOGLOBIN 12.6 g/dL (12.0-16.0); IMM GRAN# 0.02 X1000 (0.0-0.04); IMM GRAN% 0.3 % (0.0-0.5); LYMPH# 2.62 X1000 (1.2-3.4); LYMPH% 35.7 % (20.5-51.1); MCHC 31.8 g/dL (33-37); MCV 78.4 FL (81-99); MONO# 0.47 X1000 (0.11-0.59); MONO% 6.4 % (1.7-9.3); MPV 10.6 FL (7.4-10.4); NEUT# 3.96 X1000 (1.4-6.5); NEUT% 53.9 % (42.2-75.2); PLT 267 X1000 (130-400); RBC 5.05 XMIL (4.2-5.4); RDW 17.5 % (11.5-14.5); WBC 7.34 X1000 (4.8-10.8)
[2019-04-06 07:40] LABS: AGAP 9; BUN 10 mg/dL (8-22); CALCIUM 9.3 mg/dL (8.8-10.2); CHLORIDE 97 mmol/L (98-107); COSMO 277; CREATININE 1.1 mg/dL (0.5-0.9); ESTIMATED GFR > 60; GLUCOSE 105 mg/dL (70-104); POTASSIUM 3.9 mmol/L (3.5-5.1); SODIUM 139 mmol/L (136-145); TCO2 33 mmol/L (25-35)
[2019-04-06] MEDS ORDERED: LEXISCAN ONE (08:49)
[2019-04-06] MEDS: MAXZIDE-25 PO SCH (10:28)
[2019-04-06] MEDS: XANAX PO SCH ×2 (10:28→21:02)
--- NOTE | 2019-04-06 14:53 | GASTROENTEROLOGY PROGRESS NOTE ---
DATE: 04/06/2019 SUBJECTIVE: Patient resting in bed. She is undergoing cardiology evaluation. She has COPD she has been having coughing spells. She does describe symptoms of atypical chest pain. She denies any nausea or vomiting this morning. OBJECTIVE: Vital Signs: Temperature 98.7 degrees, pulse rate 69, respiratory rate of 19, blood pressure 140/87 saturating 92% on room air. Body weight of 139 pounds, BMI 24.6 kg. General: Moderately nourished, lying in bed, in no acute distress. HEENT: HEENT no pallor. No icterus. Neck: Supple. Abdomen: Soft, mild discomfort. No rebound. No guarding. Extremities: No cyanosis clubbing neuro is alert, awake, oriented x3. LABS: Hemoglobin and hematocrit is 12.6 and 39.6, white count of 7.34 platelet count of 267,000. Sodium 139, potassium 3.9, chloride 97, bicarb 33, anion gap of 9, BUN of 10 creatinine 1.1, glucose 105, calcium 9.3. Liver enzymes done on 04/03 showed AST of 38, ALT 23, alkaline phos 136, total protein 8.6, albumin of 4.1, bilirubin 0.3. Troponin less than 0.01. Urinalysis is clear and toxicology screen is positive for opioids. Urine culture is pending. CT scan of the abdomen and pelvis showed dilation of the right renal collecting system of uncertain etiology. Otherwise no evidence of acute disease. Fibrotic opacities in right middle lobe lung and lingula, emphysematous changes in both lower lobes. Gallbladder is clear. There is granulomata in the spleen. There is some few scattered hepatic granulomata. There is fatty change near the falciform ligament groove. No evidence of nephrolithiasis. There is a small ventral hernia containing fat to the right of the umbilicus. There is no bowel obstruction. There has been a hysterectomy. There has been degenerate changes in the sacroiliac joints. Ultrasound of the abdomen 04/03/2019 showed no evidence of acute disease. IMPRESSION AND PLAN: 1. Nausea and vomiting. 2. Hypertensive urgency. 3. Abdominal pain. 4. Atypical chest pain. 5. Chronic obstructive pulmonary disease. 6. Elevated liver enzymes. 7. Type 2 diabetes. 8. History of colon polyps. 9. Tobacco abuse. Chronic smoker. 10. History of peptic ulcer disease. 11. Peripheral neuropathy. 12. Gastroparesis. 13. History of reflux disease. On home Protonix. 14. Mildly elevated liver enzymes and mildly elevated lipase. 15. Negative ultrasound the abdomen and negative CT scan of the abdomen and pelvis. No evidence of any gallstones. RECOMMENDATIONS: 1. We will continue with antiemetics. Will continue PPIs. We will schedule for EGD tomorrow after cardiology has cleared the patient. The patient counseled to quit smoking. We will check acute hepatitis panel and YEYO and chronic liver disease workup for elevated liver enzymes. She is on Dilaudid for pain control and she is going to be on Protonix once daily for GI prophylaxis and history of reflux disease. 2. We will schedule for EGD likely tomorrow if cleared by cardiology. 3. The above plans were discussed with the patient and family at bedside. All questions answered. Please call us with any further questions. cc: MD Vinay Barlow MD
--- NOTE | 2019-04-06 15:00 | Diag Imaging Result Document ---
PROCEDURE NAME: MYOCARDIAL PERF SCAN, STR/REST - 04/06/2019 INDICATION: This is a 59-year-old female with chest pain. DESCRIPTION OF PROCEDURE: The patient came into the nuclear lab and received a rest injection of technetium 99 sestamibi 10.7 mCi. Multiple tomographic views of the cardiac structures were obtained at rest. Subsequently the patient underwent a walking Lexiscan protocol and at peak infusion was injected with technetium 99 sestamibi 31.7 mCi. Multiple tomographic views of the cardiac structures were obtained following completion of the protocol. SUMMARY OF ELECTROCARDIOGRAPHIC PORTION OF THE STUDY: Resting ECG shows sinus rhythm at rate of 85 beats per minute. Resting blood pressure is 159/92. Resting ECG showed no significant abnormalities. During the protocol, the heart rate increased to 141 beats per minute. That represents 86% of maximum predicted heart rate for her age. Blood pressure went down to 122/80 and then subsequently to 164/85. The patient reported midsternal chest pain that was severe, 9/10, and she stopped walking on the treadmill. The pain subsided on its own. She did not require nitroglycerin or aminophylline. During the recovery phase, no changes were noted. CONCLUSIONS: In summary, the electrocardiographic response to infusion of Lexiscan using a walking protocol is negative for ischemia from the ECG viewpoint. The patient reported a very atypical severe chest pain that resolved on its own. SUMMARY OF MYOCARDIAL PERFUSION PORTION OF THE STUDY: Poststress tomographic views of the left ventricle showed normal homogeneous distribution of radiotracer throughout the entire left ventricular myocardium. There is no convincing evidence of any postexercise defect. The rest images showed normal perfusion. The polar plots revealed the same. There is no convincing evidence of neither inducible ischemia nor myocardial scar. Gated SPECT shows normal left ventricular systolic function. Ejection fraction is estimated at 89% with normal ventricular volumes and no wall motion abnormality. Lung/heart ratio is normal. TID is normal. CONCLUSIONS: In summary, this study showed: 1. "Normal" electrocardiographic response to walking Lexiscan protocol. The patient reported chest pain which resolved spontaneously. ECG showed no changes. 2. Normal poststress myocardial perfusion scan. There is no scintigraphic evidence of pharmacologically induced myocardial ischemia. 3. Normal left ventricular systolic function. Ejection fraction is estimated at 89% with normal ventricular volumes and no wall motion abnormality. 4. This study represents low risk for ischemic events. Clinical correlation is recommended. cc: MD Reed Celeste MD
[2019-04-06] MEDS: TORADOL IV PRN (16:02)
[2019-04-06] MEDS: ZANTAC PO PRN (21:02)
--- NOTE | 2019-04-06 22:45 | PROGRESS NOTE ---
DATE: 04/06/2019 SUBJECTIVE: A 59-year-old female admitted to the hospital on 04/[address] Boyd with nausea, vomiting, right-sided abdominal pain, and chest pain. The patient was admitted in ICU, subsequently transferred to the floor. The patient was seen in the nuclear medicine room while getting a stress test. The patient has abnormal CT with dilated right collecting system. Currently, she looks stable. PAST MEDICAL HISTORY: Reviewed. PAST SURGICAL HISTORY: Reviewed. MEDICINES: Reviewed. ALLERGIES: Not known. PHYSICAL EXAMINATION: Vital signs: Temperature is 98.6, pulse 89, blood pressure 136/86, 98% on room air. HEENT: Atraumatic, normocephalic. Pupils equal, react to light. TMs are normal. Nose and throat within normal limits. Neck: Supple. No lymphadenopathy. No goiter. Chest: Bilateral air entry. Heart: Sounds are regular. No murmur. Abdomen: Belly is soft, nontender. Good bowel sounds. Extremities: No peripheral edema cyanosis. Neurologic: No obvious neurological deficits. INVESTIGATIONS: CBC: White cell count 7.3, hematocrit 39, platelet 267,000. Sodium 139, potassium 3.9, chloride 97. BUN 10, creatinine 1.1, glucose 105. Cardiac enzymes were negative. Urinalysis is clear. Urine toxicology screen positive for opiates and urine cultures were negative. Abdominal ultrasound: No evidence of acute disease. CT scan of the abdomen and pelvis: Status post hysterectomy. Fibrotic changes right middle lobe, lingula. COPD changes. Dilatation of right renal collecting system. No evidence of acute disease. Next echocardiogram, normal LV cavity size. EF 60%. ASSESSMENT AND PLAN: 1. A 59-year-old female admitted to the hospital with abdominal pain, atypical chest pain, possible urinary tract infection. 2. Chest pain. EKG subsequent ruled out and going for undergoing for stress test in the past. She had a normal cardiac workup. 3. Right-sided abdominal pain. Dilated renal collecting system. Followup urine cultures were negative. 4. Chronic anxiety on Xanax 0.25 p.o. b.i.d. 5. Hypertension. Catapres patch and also Maxzide. 6. Continue on Protonix and Zantac for acid reflux disease. 7. For chronic pain, we will use the Toradol as needed and the patient was also seen by Dr. Crowe and set up for EGD in the morning and follow up on the stress test. LEVEL OF DOCUMENTATION: [35] cc: Vinay Pitts MD [facility] CENTERPhuong
[2019-04-07] MEDS: NITROGLYCERIN TOP SCH ×4 (06:07→22:15)
[2019-04-07] MEDS: PROTONIX PO SCH ×2 (06:08→11:23)
[2019-04-07] MEDS ORDERED: ROBINUL ONE (06:53)
[2019-04-07] MEDS ORDERED: XYLOCAINE-MPF 2% ONE (06:53)
[2019-04-07] MEDS ORDERED: ZOFRAN ONE (06:54)
[2019-04-07] MEDS ORDERED: DIPRIVAN 1% ONE ×2 (06:54→08:02)
[2019-04-07] MEDS ORDERED: SODIUM CHLORIDE 0.9% 0 ML ONE (08:18)
[2019-04-07] MEDS ORDERED: NEO-SYNEPHRINE ONE (08:18)
--- NOTE | 2019-04-07 09:01 | ENDOSCOPY OPERATIVE NOTE ---
[facility] ENDOSCOPY OPERATIVE NOTE , PATIENT: Irma Dale ADMISSION DATE: 04/07/2019 MR#: [id number] : 1960 EGD PROCEDURE REPORT PROCEDURE DATE: 04/07/2019 SURGEON: Isaac Jenkins MD STATUS: inpatient C[employer] OPERATOR: PREOPERATIVE DIAGNOSIS: The patient is a 59 yr old female here for an EGD due to epigastric abdomina l pain and vomiting. PROCEDURE PERFORMED: EGD w/ biopsy MEDICATIONS: Per Anesthesia TOPICAL ANESTHETIC: none CONSENT: The patient understands the risks and benefits of the procedure and understands that these r isks include, but are not limited to: sedation, allergic reaction, infection, perforation and/or bleeding. Alternative means of evaluation and treatment include, among others: physical exam, x-rays, and/or surgical intervention. The patient elects to proceed with this endoscopic procedure. HISORY AND PHYSICAL: 04/07/2019 function. Hand hygiene and appropriate measures for infection prevention was taken. After the risks, benefits and alternatives of the procedure were thoroughly explained, Informed consent was verified, confirmed and timeout was successfully executed by the treatment team. The patient was anesthetized with topical anesthesia and the CH28-l09 ([id number]) endoscope was introduced through the mouth and advanced to the second portion of the duoden um. Retroflexion was performed in the stomach and revealed no abnormalities. The gastroscope was then slowly withdraw n and removed. ESOPHAGUS: The z-line was noted at 40cm from the incisors. The z-line appeared irregular. Reflux e sophagitis was found at the gastroesophageal junction. Esophagitis was LA Class A: One or more mucosal breaks < 5 m m in maximal length. STOMACH: The stomach was normal. Cold forcep biopsies were taken for H. pylori evaluation. DUODENUM: The duodenum was normal. SPECIMENS REMOVED: Yes ADVERSE EVENTS: There were no complications. POSTOPERATIVE DIAGNOSIS: 1. The z-line was noted at 40cm from the incisors 2. Reflux esophagitis at the gastroesophageal junction 3. The stomach was normal 4. The duodenum was normal RECOMMENDATIONS: 1. Await biopsy results 2. Transition PPI from IV to PO twice daily Continue antiemetics prn for nausea Advance diet as tolerated REPEAT EXAM: Isaac Jenkins MD eSigned: Isaac Jenkins MD 04/07/2019 9:01 AM cc: PATIENT NAME: Irma Dale MR#: [id number]
[2019-04-07] MEDS: XANAX PO SCH ×2 (09:25→20:02)
[2019-04-07] MEDS: ZOFRAN IV PRN ×5 (09:26→23:50)
[2019-04-07] MEDS: MAXZIDE-25 PO SCH (09:26)
[2019-04-07] MEDS: TORADOL IV PRN (09:26)
[2019-04-07] MEDS: DILAUDID IV PRN ×5 (11:23→23:50)
[2019-04-07 13:54] LABS: HEPATITIS PROFILE ACUTE SEE COMMENTS
--- NOTE | 2019-04-07 21:04 | PROGRESS NOTE ---
DATE: 04/07/2019 SUBJECTIVE: This morning the patient went to EGD by Dr. Crowe. OBJECTIVE: The patient has some low-grade fever. Vital signs are stable. HEENT exam within normal limits. Neck is supple. Chest is clear. Heart sounds are regular. Belly is soft, nontender. No obvious deficits. INVESTIGATIONS: None reported. ASSESSMENT AND PLAN: 1. Chest pain. Cardiac workup was negative. 2. Noncardiac workup as per Dr. Crowe, and follow up on the endoscopic findings. Apparently it is reflux esophagitis. 3. Abdominal pain. CT findings reviewed. Change proton pump inhibitor to Protonix and Zantac. Pain medicine, Toradol as needed. We will discuss. Findings were reassuring. Will follow up. Level of documentation 25 minutes. cc: Vinay Pitts MD
[2019-04-08] MEDS: DILAUDID IV PRN ×7 (03:50→22:36)
[2019-04-08] MEDS: ZOFRAN IV PRN ×5 (03:50→19:41)
[2019-04-08] MEDS: NITROGLYCERIN TOP SCH ×4 (03:57→21:50)
[2019-04-08] MEDS: PROTONIX PO SCH (07:16)
[2019-04-08] MEDS: MAXZIDE-25 PO SCH (08:00)
[2019-04-08] MEDS: XANAX PO SCH ×2 (08:00→21:50)
[2019-04-08] MEDS: TORADOL IV PRN (19:41)
--- NOTE | 2019-04-08 21:43 | PROGRESS NOTE ---
DATE: 04/08/2019 SUBJECTIVE: Patient is doing very well. Explained all the testing by GI, Cardiology. Symptoms are out of proportion to the objective findings. OBJECTIVE: Vital Signs: On exam, temperature is 98. Vitals are stable. HEENT: Within normal limits. Neck: Supple. Chest: Clear. Heart: Sounds are regular. Abdomen: Belly is soft, nontender. Neurologic: No obvious neurological deficits. ASSESSMENT AND PLAN: 1. Chest pain, noncardiac. Reflux esophagitis. Continue proton pump inhibitor. 2. Dr. Crowe did an extensive workup. Only YEYO positive, anti-DS DNA slightly positive. Antismooth muscle antibody slightly positive. Questionable clinical significance. Will closely monitor. 3. Patient asked to discharge today. She does not have anybody to pick her up. Continue present treatment. Will discharge in the morning with proton pump inhibitor. LEVEL OF DOCUMENTATION: 25 minutes. cc: Vinay Pitts MD
--- NOTE | 2019-04-08 23:43 | PROVIDER PROGRESS NOTE ---
Progress Note S: No acute overnight events. Patient continues to have periumbilical abdominal pain and complains a "lump" in her abdomen. O: Last Vital Signs Temp 97.9 F 04/09/19 00:00 Pulse 86 04/09/19 00:00 Resp 20 04/08/19 15:28 BP 165/86 04/09/19 00:00 Pulse Ox 97 04/09/19 00:00 Height 5 ft 3 in Weight 139 lb GEN: awake, alert, NAD HEENT: anicteric, MMM NECK: supple, no jvd PULM: CTAB CV: RRR, no murmurs ABD: obese, palpable hernia right periumbilical area TTP, BS present, no rebound or guarding EXT: no cce NEURO: nonfocal 04/05/19 04/05/19 07:00 07:00 WBC 7.43 Hgb 13.7 Plt Count 328 Sodium 138 Potassium 3.8 D Chloride 93 L Carbon Dioxide 33 BUN 15 Creatinine 1.4 H EXAM: CT ABD/PELVIS W/ORAL CONT ONLY 04/03/2019 HISTORY: ruq pain/tender TECHNIQUE: This exam was performed using automated exposure control, adjustment of mA or kV according to patient size, and/or use of iterative reconstruction technique. COMMENT: There are fibrotic opacities in the right middle lobe and lingula. There are emphysematous changes in both lower lobes. These findings were also present on 03/27/2018. There are granulomata in the spleen. The gallbladder is clear. There are a few scattered hepatic granulomata. There is fatty change near the falciform ligament groove. There is some dilatation of the renal pelvis and calyces on the right. This was not the case at the time the previous study. There is no evidence of nephrolithiasis. There is no evidence of ureterolithiasis and the urinary b ladder is unremarkable. The appendix is normal in appearance. There is a small ventral hernia containing fat to the right of the umbilicus. There is no evidence of bowel obstruction. Pelvis: There has been hysterectomy. No free fluid is present. There are degenerative changes in the sacroiliac joints. There is no evidence of acute bony abnormality. IMPRESSION: Dilatation of the right renal collecting system of uncertain etiology. Otherwise, no evidence of acute disease. A/P Ms. Dale is a 59 year old woman with history of HTN, GERD, NIDDM2, colonic polyps, tobacco abuse, COPD, h/o PUD, peripheral neuropathy and reported gastroparesis who presents with 1 week of intractable nausea and vomiting and periumbilical abdominal pain. Found to have JOHN. Elevated lipase not consistent with pancreatitis. Minimally elevated LFTs. Chronic liver disease workup only revealing for positive ASMA. Repeat UA negative. Ruled out for ACS. Nuclear stress test was negative. EGD showed esophagitis. On exam, she had a palpable periumbilical hernia that is painful to palpation. Reviewing the most recent CT shows small ventral hernia containing fat to the right of the umbilicus. # Abdominal pain: suspect this is from her fat-containing ventral hernia; I would recommend surgical evaluation given negative GI workup # N/V: continue antiemetics prn; continue PPI # Esophagitis: continue PPI # Hypertensive urgency/chest pain: improved; myocardial perfusion scan negative cards # NIDDM2: glycemic control Will follow with you.
[2019-04-09] MEDS: DILAUDID IV PRN ×3 (01:34→08:12)
[2019-04-09] MEDS: ZOFRAN IV PRN ×2 (01:40→08:12)
[2019-04-09] MEDS: TORADOL IV PRN (04:33)
[2019-04-09] MEDS: NITROGLYCERIN TOP SCH (04:36)
[2019-04-09] MEDS: PROTONIX PO SCH ×2 (04:36→08:13)
[2019-04-09 07:42] VITALS: BP 154/94
[2019-04-09] MEDS: XANAX PO SCH (08:11)
[2019-04-09] MEDS: ZANTAC PO PRN (08:11)
[2019-04-09] MEDS: MAXZIDE-25 PO SCH (09:34)
--- NOTE | 2019-04-09 15:34 | GASTROENTEROLOGY PROGRESS NOTE ---
DATE: 04/09/2019 SUBJECTIVE: Patient resting in chair. She is feeling better. She denies any nausea, vomiting, or fevers, rigors, chills. She has mild discomfort in the abdomen, which is improved. OBJECTIVE: Vital signs: Temperature 98.2 degrees, pulse rate 92, respiratory rate 20, blood pressure 154/94, saturating 100% on room air. Her body weight of 139 pounds, BMI 24.6 kg/m2. General Appearance: Is moderately malnourished, sitting in chair, in no acute distress. HEENT: No pallor. No icterus. Neck: Supple. Abdomen: Soft, mild discomfort in periumbilical region; no rebound or guarding. Extremities: No cyanosis, clubbing. Neuro: She is alert, awake, oriented. LABS: Hemoglobin and hematocrit is 12.6 and 39.6, white count of 7.34, platelet count of 267,000, sodium 139, potassium 3.9, chloride 97, bicarb 30, anion gap 9, BUN of 10, creatinine 1.1, glucose of 105, calcium 9.3. The liver enzymes were elevated on 04/03 which included AST of 38, ALT 23, alkaline phosphatase is 136, total bilirubin is 0.3, and total protein is 8.6, albumin of 4.1, and lipase was 77 and her alpha 1 antitrypsin level is 158, and ceruloplasmin level is 51.4 and YEYO is positive. Anti-DS DNA is 65 and her antimitochondrial antibody is less than 0.1 and her antismooth muscle antibody is positive 1:80 and hepatitis panel is nonreactive. Her CT scan done on 04/03 showed evidence of dilation of the right renal collecting system of uncertain etiology Otherwise no evidence of acute disease and then she had ultrasound of the abdomen done which showed no evidence of acute disease. She had endoscopy done by Dr. Jenkins on 04/07/2019 which showed reflux esophagitis, otherwise normal. The gastric biopsies were done from the EGD which showed chronic inactive gastritis, Helicobacter pylori negative. IMPRESSION AND PLAN: 1. Abdominal pain, unclear etiology. It could be from fat containing ventral hernia. Dr. Jenkins recommended surgical evaluation. 2. Nausea and vomiting. Continue antiemetics and continue PPIs. This is improved. 3. Esophagitis, reflux disease. Continue PPIs and follow gastroesophageal reflux disease. 4. Hypertensive urgency and chest pain improved. Myocardial perfusion scan is negative. 5. Type 2 diabetes. Continue to keep good diabetes control. 6. Elevated liver enzymes and positive YEYO and positive anti smooth muscle antibody and elevated gamma gap suggesting a possibility of autoimmune liver disease. The patient will follow up in the clinic in a few weeks. At that time, we will discuss the option of doing a liver biopsy if needed to evaluate for any kind of autoimmune liver disease. She will also need outpatient colonoscopy for ongoing abdominal pain. 7. The patient has history of colon polyps and her last colon was years ago so we will plan for outpatient colonoscopy as well. The patient has history of peripheral neuropathy and reported gastroparesis. If her symptoms persist, then we may have to perform a gastric emptying study. 8. The above plan discussed with the patient. All questions answered. Please call us with any further questions. cc: MD Vinay Barlow MD MTDD
--- NOTE | 2019-04-11 22:58 | DISCHARGE SUMMARY ---
ADMISSION DATE: 04/03/2019 DISCHARGE DATE: 04/09/2019 DISCHARGING DIAGNOSIS: Right-sided abdominal pain. Etiology is not clear, with dilatation of right renal pelvis. SECONDARY DIAGNOSES: 1. Atypical chest pain. 2. Glucose intolerance/metabolic syndrome. 3. History of acid reflux disease. 4. History of gastroparesis. 5. Chronic obstructive pulmonary disease with left upper lobe fibrosis. 6. Carpal tunnel on the right side. 7. Perimenopausal syndrome. 8. Fibrocystic disease of breast. 9. Tobacco abuse. 10. History of noncompliance. 11. Chronic anxiety/depression. 12. Chronic pain syndrome. CONSULTS: Dr. Crowe, Dr. Dial. PROCEDURES: Myocardial perfusion scan 04/06/2019, Lexiscan. No reversible defects noted. Ejection fraction 89%. Echocardiography findings: Normal LV cavity size. Normal LV systolic function. No evidence of structural heart disease. RADIOLOGY PROCEDURES: 1. Ultrasound of the abdomen: No evidence of acute disease. 2. CT scan of the abdomen and pelvis: Dilatation of right renal collecting system. No evidence of acute disease. Status post hysterectomy. Some fibrotic changes noted, right middle lobe and lingula. 3. EGD: Findings are erosive esophagitis, distal esophageal ulcer, Schatzki ring, hiatal hernia (that was on 03/31/2019). Followup EGD on 04/07/2019: Reflux esophagitis, no duodenal ulcers. Stomach and duodenum were normal. Significant improvement from the previous reports from Dr. Chiu. 4. Pathology reports: Chronic and active gastritis. H pylori was negative. BRIEF HISTORY: Please see the H and P that was done by Dr. Boyd. In brief, she is a 59-year-old female who came in with right-sided upper abdominal pain, chest pain, multiple complaints for the last 4 days. The patient was found to have an abnormal CT with a dilated right collecting system. No history of kidney stones. She has a prior history of acid reflux disease. HOSPITAL COURSE: 1. The patient was ruled out for myocardial infarction. EKG was normal. The patient was seen by a information security and was ruled out. Had a normal stress test and echocardiography. Previous catheterization in 2016 was negative. 2. She has a history of hiatal hernia and acid reflux disease, and followup EGD showed significant improvement from the findings in 2014. 3. Chronic pain seeking for ulterior motives. Symptoms are out of proportion to the objective findings. Findings were reassuring. Dr. Crowe did a lot of laboratory workup, and she had a nonspecific positive YEYO and anti smooth muscle antibody. This will be addressed as an outpatient. LABS: CBC: White cell count 7.3, hematocrit 39, platelets 267. Sodium 139, potassium 3.9, chloride 97, BUN 10, creatinine 1.1 glucose 105. At the time of admission, the patient was dehydrated, and after IV fluids, renal function tests came back normal. She could have passed a kidney stone at this time that might be the cause of her pain. Alpha antitrypsin was negative. Ceruloplasmin is normal. Urinalysis came back negative. Urine toxicology screen positive for opiates. Slightly positive YEYO, anti smooth muscle antibody. Hepatitis panel was negative. Findings were reassuring, and I did explain she does not need to do any further workup. DISCHARGE INSTRUCTIONS: Protonix 40 mg daily, Xanax 0.25 p.o. b.i.d., clonidine 0.2 daily, Dyazide 1 tablet daily. Follow up in my office in 2 weeks. cc: Vinay Pitts MD
== END 2019-04-09 10:39 | disposition home or self-care (01) | DRG 392 ==
LOC: ED 12:52 → ICU 20:04 → 3N 04-05 01:06
PROVIDERS: ADMIT Internal Medicine; ATTEND Internal Medicine
CPT/HCPCS: 74176; 76705; 78452; 80048; 80053; 80074; 80101; 80301; 80307; 80324; 80345; 80346; 80353; 80358; 80361; 80365; 81001; 82103; 82390; 82550; 82553; 82948; 83516; 83690; 83992; 84484; 85025; 86038; 86039; 86235; 86255; 87088; 88305; 88312; 93005; 93017; 93306; 96361; 96374; 96375; 96376; 99285; A9270; A9500; G0431; G0434; G0479; G0480; J1170; J1885; J2270; J2370; J2405; J2785; J3480; J7030; XXXXX